=== PATIENT | female | born 1975 | race Caucasian/White ===

== ENCOUNTER 2016-07-02 12:32 | Inpatient (IN) | payer OTHER ==
[2016-07-02] MEDS ORDERED: COLACE PO PRN (13:45)
[2016-07-02] MEDS ORDERED: ALUM-MAG HYDROX-SIMETH 200-200-20MG/5ML PO PRN (13:45)
[2016-07-02] MEDS ORDERED: MILK OF MAGNESIA PO PRN (13:45)
--- NOTE | 2016-07-02 13:58 | History and Physical Report ---
History of Present Illness Date of examination: 07/02/16 Chief complaint: Headaches and elevated BP's History of present illness: Pt is a 41yo HF EDC 09/15/16 ; EGA 29 2/7 weeks sent from the office with complaints of headaches x 2 days and elevated BP's 175/101 in office. Repeat BP 179/103. She received care at [facility] since 13 weeks and course significant for previous C Section @ 38 weeks with her last delivery. Operative report is NOT available, but she desires a TOLAC. records are available and she will be admitted for suspected Preeclampsia. Past History Past Medical History: no pertinent history Past Surgical History: section Family/Genetic History: none Social history: no significant social history, single - Obstetrical History Expected Date of Delivery: 09/15/16 Actual Gestation: 29 Week(s) 2 Day(s) : 5 Medications and Allergies Allergies Allergy/AdvReac Type Severity Reaction Status Date / Time No Known Allergies Allergy Unverified 07/02/16 12:43 Home Medications Medication Instructions Recorded Confirmed Last Taken Type No Known Home Medications [No 07/02/16 07/02/16 Unknown History Reported Home Medications] Review of Systems All systems: negative - Vital Signs Vital signs: Vital Signs Pulse Pulse Ox 65 97 07/02/16 13:04 07/02/16 13:04 Temp Pulse Resp BP Pulse Ox 97.9 F 64 14 159/102 98 07/02/16 13:10 07/02/16 13:50 07/02/16 13:10 07/02/16 13:50 07/02/16 13:50 - Physical Exam Breasts: Positive: deferred Cardiovascular: Regular rate Lungs: Positive: Clear to auscultation Abdomen: Positive: normal appearance, soft Genitourinary (Female): Positive: normal external genitalia Uterus: Positive: enlarged Extremities: Positive: normal - Obstetrical FHR: category 1 Uterine Contraction Monitor Mode: External Cervical Dilatation: 0 Uterine Contraction Pattern: Irregular Uterine Contraction Intensity: Mild Results Result Diagrams: 07/02/16 13:45 07/02/16 13:45 All other labs normal. Ultrasound: report reviewed (Mora, Breech, ASHLEE 11.6, 1115gms, 3cm dilated. BPP 6/8) Assessment and Plan - Patient Problems (1) 29 weeks gestation of Onset Date: 07/02/16 Current Visit: Yes Status: Acute Plan to address problem: A: IUP @ 29 2/7 weeks Preeclampsia Previous C Section Breech P: Will admit to L&D for Observation and Evaluation Will begin Magnesium sulfate, Steroids, Antibiotics, antihypertensive meds , 24hr urine for protein C Section for delivery if remains breech Obtain APA and NICU consult (2) Previous delivery affecting Onset Date: 07/02/16 Current Visit: Yes Status: Acute (3) Pre-eclampsia Onset Date: 07/02/16 Current Visit: Yes Status: Acute Qualifiers: Trimester: third trimester Qualified Code(s): O14.93 - Unspecified pre- eclampsia, third trimester
[2016-07-02] MEDS: APRESOLINE IV PRN (14:10)
[2016-07-02] MEDS: LACTATED RINGERS 1,000 ML IV SCH (14:15)
[2016-07-02 14:17] LABS: Hematocrit 35.4 % (30.3-42.9); Hemoglobin 12.3 gm/dl (10.1-14.3); Mean Corpuscular HGB Conc 35 % (30-34); Mean Corpuscular Hemoglobin 30 pg (28-32); Mean Corpuscular Volume 88 fl (79-97); Red Blood Count 4.04 M/mm3 (3.65-5.03); White Blood Count 8.5 K/mm3 (4.5-11.0)
[2016-07-02 14:18] LABS: Basophils % (Auto) 0.5 % (0.0-1.8); Eosinophils % (Auto) 1.2 % (0.0-4.3); Platelet Count 229 K/mm3 (140-440); Red Cell Distribution Width 15.3 % (13.2-15.2)
[2016-07-02] MEDS: CELESTONE SOLUSPAN IM SCH (14:20)
[2016-07-02 14:29] LABS: Alanine Aminotransferase 7 units/L (7-56)
[2016-07-02] MEDS ORDERED: MAGNESIUM SULFATE 4GM/100ML 4 GM/100 ML BAG IV ONE (14:30)
[2016-07-02] MEDS: MAGNESIUM SULFATE 40GM/1000ML 40 GM/1,000 ML BAG IV SCH (14:33)
[2016-07-02 14:38] LABS: Alanine Aminotransferase 6 units/L (7-56); Albumin 3.5 g/dL (3.9-5); Albumin/Globulin Ratio 0.9 %; Alkaline Phosphatase 88 units/L (35-129); Anion Gap 19 mmol/L; Bilirubin,Total 0.4 mg/dL (0.1-1.2); Blood Urea Nitrogen 11 mg/dL (7-17); Calcium 9.2 mg/dL (8.4-10.2); Carbon Dioxide 20 mmol/L (22-30); Chloride 101.6 mmol/L (98-107); Glucose 89 mg/dL (65-100); Potassium 3.6 mmol/L (3.6-5.0); Sodium 137 mmol/L (137-145); Total Protein 7.2 g/dL (6.3-8.2)
[2016-07-02 17:05] LABS: Bilirubin,Urine NEG (Negative)
[2016-07-02 17:06] LABS: Bacteria,Urine 2+ /HPF (Negative); Blood,Urine NEG (Negative); Ketones,Urine 20 mg/dL (Negative); Leukocyte Esterase,Urine NEG (Negative); Mucus,Urine FEW /HPF; Nitrite,Urine NEG (Negative); Urobilinogen,Urine < 2.0 mg/dL (<2.0)
[2016-07-02] MEDS: TYLENOL PO PRN (19:31)
[2016-07-02] MEDS: ZOFRAN IV PRN (20:51)
[2016-07-02] MEDS ORDERED: STADOL IV ONE (20:59)
[2016-07-02] MEDS: POLYCILLIN/NS 1 GM/50 ML 1 GM/50 ML BAG IV SCH (21:11)
--- NOTE | 2016-07-02 23:21 | Consultation ---
History of Present Illness - Reason for Consult Consult date: 07/02/16 29 weeks with PIH Requesting physician: LISA BOB - History of Present Illness 40 year old mother at 29 weeks gestation with PIH. Admitted today for high blood pressure and headaches. Amharic speaking - consult done with nurse jack spooler tender I spoke at length with mother and explained the need for NICU admission, the risk of IVH, ROP, respiratory distress and possibly intubation, UVC, UAC & PICC line placements, parenteral nutrition and the likelihood of blood transfusions if was born at 29 weeks gestation. I explained that survival at 29 weeks is > 80%. Mother demonstrated understanding of the information provided and I answered all her questions Past History Social history: no significant social history, single Medications and Allergies Allergies Allergy/AdvReac Type Severity Reaction Status Date / Time No Known Allergies Allergy Unverified 07/02/16 12:43 Home Medications Medication Instructions Recorded Confirmed Last Taken Type No Known Home Medications [No 07/02/16 07/02/16 Unknown History Reported Home Medications] Active Meds: Active Medications Acetaminophen (Tylenol) 650 mg PO Q4H PRN PRN Reason: Pain MILD(1-3)/Fever >100.5/BAUMAN Last Admin: 07/02/16 19:31 Dose: 650 mg Al Hydrox/Mg Hydrox/Simethicone (Alum-Mag Hydrox-Simeth [id number]/5ml) 30 ml PO Q6H PRN PRN Reason: Indigestion Betamethasone Acet/Betameth SodPhos (Celestone Soluspan) 12 mg IM Q24H AMARJIT Stop: 07/03/16 15:01 Last Admin: 07/02/16 14:20 Dose: 12 mg Docusate Sodium (Colace) 100 mg PO Q12H PRN PRN Reason: Constipation Hydralazine HCl (Apresoline) 10 mg IV Q30MIN PRN PRN Reason: Blood Pressure Last Admin: 07/02/16 14:10 Dose: 10 mg Ampicillin Sodium (Polycillin/Ns 1 Gm/50 Ml) 1 gm in 50 mls @ 100 mls/hr IV Q4H AMARJIT PRN Reason: Protocol Last Admin: 07/02/16 21:11 Dose: 100 mls/hr Lactated Ringer's (Lactated Ringers) 1,000 mls @ 125 mls/hr IV DIRECT AMARJIT Last Admin: 07/02/16 14:15 Dose: 125 mls/hr Magnesium Sulfate (Magnesium Sulfate 40gm/1000ml) 40 gm in 1,000 mls @ 50 mls/ hr IV DIRECT AMARJIT PRN Reason: 2 GM/HR Last Admin: 07/02/16 14:33 Dose: 2 gm/hr, 50 mls/hr Magnesium Hydroxide (Milk Of Magnesia) 30 ml PO QHS PRN PRN Reason: Laxative Effect Multivitamins/Iron/Calcium ( Vitamin) 1 each PO QDAY AMARJIT Ondansetron HCl (Zofran) 4 mg IV Q6H PRN PRN Reason: Nausea And Vomiting Last Admin: 07/02/16 20:51 Dose: 4 mg Exam - Constitutional Vitals: Temp Pulse Resp BP Pulse Ox 98.1 F 74 20 167/101 95 07/02/16 19:10 07/02/16 23:05 07/02/16 20:15 07/02/16 22:57 07/02/16 23:05 Results - Labs CBC & Chem 7: 07/02/16 13:45 07/02/16 13:45 Labs: Abnormal lab results 07/02/16 07/02/16 07/02/16 Range/Units 13:45 13:45 20:46 MCHC 35 H (30-34) % RDW 15.3 H (13.2-15.2) % Lymph % (Auto) 12.5 L (13.4-35.0) % Lymph # 1.1 L (1.2-5.4) K/mm3 Seg Neutrophils % 80.9 H (40.0-70.0) % Carbon Dioxide 20 L (22-30) mmol/L Creatinine 0.4 L (0.7-1.2) mg/dL Magnesium 5.4 H (1.7-2.3) mg/dL ALT 6 L (7-56) units/L Albumin 3.5 L (3.9-5) g/dL Assessment and Plan Agree with Betamethasone and MgSO4 Will attend delivery Please call NICU with questions
[2016-07-03] MEDS: APRESOLINE IV PRN (00:22)
[2016-07-03] MEDS: POLYCILLIN/NS 1 GM/50 ML 1 GM/50 ML BAG IV SCH ×4 (02:49→14:30)
[2016-07-03] MEDS: TYLENOL PO PRN (02:57)
[2016-07-03] MEDS: LACTATED RINGERS 1,000 ML IV SCH (05:10)
--- NOTE | 2016-07-03 07:16 | Ultrasound Report ---
BIOPHYSICAL PROFILE: INDICATION: well being. HTN. growth, position and ASHLEE. COMPARISON: None similar. TECHNIQUE: Transabdominal ultrasound with Doppler interrogation. 0 - breathing movements 2 - movements 2 - posture and tone 2 - Qualitative amniotic fluid volume 6 - TOTAL SCORE OF POSSIBLE 8 Heart Rate (bpm) 137
[2016-07-03] MEDS: ZOFRAN IV PRN (08:32)
--- NOTE | 2016-07-03 08:46 | Consultation ---
History of Present Illness Consult date: 07/03/16 History of present illness: Headaches and elevated BP's History of present illness: Pt is a 41yo HF EDC 09/15/16 ; EGA 29 3/7 weeks sent from the OB's office with complaints of headaches x 2 days and elevated BP's 175/101 in office. Denies H/O CHTN States BAUMAN's 5 to 9/10 Denies Scotoma or RUQ Pain Repeat BP 179/103. BP's on Admission 194/100 and 107/101 and 153/102 Received Hydralazine Last PM This morning BP at 165/93 She received care at [facility] [employer] since 13 weeks and course significant for previous C Section @ 38 weeks with her last delivery. Operative report is NOT available, but she desires a TOLAC. records are available and she will be admitted for suspected Preeclampsia. BPP 6/8 - (Minus 2 - Breathing) Breech US done at [facility] - 07/02/16 - EFW at 1115 grams - 4% ASHLEE at 11.6 cm Abd gravid No RUQ Pain DTR's 2 Plus , No clonus on Mg Past History Past Medical History: no pertinent history Past Surgical History: section Family/Genetic History: none Social history: no significant social history, single - Obstetrical History Vag Del x 3 and C/S X 1 with last preg due to ?? Breech Expected Date of Delivery: 09/15/16 Actual Gestation: 29 Week(s) 2 Day(s) : 5 Past History Past Medical History: no pertinent history Past Surgical History: section Family/Genetic History: none - Obstetrical History : 5 Medications and Allergies Allergies Allergy/AdvReac Type Severity Reaction Status Date / Time No Known Allergies Allergy Unverified 07/02/16 12:43 Home Medications Medication Instructions Recorded Confirmed Last Taken Type No Known Home Medications [No 07/02/16 07/02/16 Unknown History Reported Home Medications] Active Meds: Active Medications Acetaminophen (Tylenol) 650 mg PO Q4H PRN PRN Reason: Pain MILD(1-3)/Fever >100.5/BAUMAN Last Admin: 07/03/16 02:57 Dose: 650 mg Al Hydrox/Mg Hydrox/Simethicone (Alum-Mag Hydrox-Simeth [phone]/5ml) 30 ml PO Q6H PRN PRN Reason: Indigestion Betamethasone Acet/Betameth SodPhos (Celestone Soluspan) 12 mg IM Q24H AMARJIT Stop: 07/03/16 15:01 Last Admin: 07/02/16 14:20 Dose: 12 mg Docusate Sodium (Colace) 100 mg PO Q12H PRN PRN Reason: Constipation Hydralazine HCl (Apresoline) 10 mg IV Q30MIN PRN PRN Reason: Blood Pressure Last Admin: 07/03/16 00:22 Dose: 10 mg Ampicillin Sodium (Polycillin/Ns 1 Gm/50 Ml) 1 gm in 50 mls @ 100 mls/hr IV Q4H AMARJIT PRN Reason: Protocol Last Admin: 07/03/16 06:36 Dose: 100 mls/hr Lactated Ringer's (Lactated Ringers) 1,000 mls @ 125 mls/hr IV DIRECT AMARJIT Last Admin: 07/03/16 05:10 Dose: 75 mls/hr Magnesium Sulfate (Magnesium Sulfate 40gm/1000ml) 40 gm in 1,000 mls @ 50 mls/ hr IV DIRECT AMARJIT PRN Reason: 2 GM/HR Last Admin: 07/02/16 14:33 Dose: 2 gm/hr, 50 mls/hr Labetalol HCl (Normodyne) 200 mg PO BID AMARJIT Magnesium Hydroxide (Milk Of Magnesia) 30 ml PO QHS PRN PRN Reason: Laxative Effect Multivitamins/Iron/Calcium ( Vitamin) 1 each PO QDAY AMARJIT Ondansetron HCl (Zofran) 4 mg IV Q6H PRN PRN Reason: Nausea And Vomiting Last Admin: 07/03/16 08:32 Dose: 4 mg - Vital Signs Vital signs: Vital Signs Pulse Pulse Ox 65 97 07/02/16 13:04 07/02/16 13:04 Temp Pulse Resp BP Pulse Ox 98.1 F 85 20 151/86 94 07/03/16 06:22 07/03/16 08:28 07/03/16 06:22 07/03/16 08:28 07/03/16 03:38 Results Result Diagrams: 07/02/16 13:45 07/02/16 13:45 Abnormal lab results 07/02/16 07/02/16 07/02/16 Range/Units 13:45 13:45 20:46 MCHC 35 H (30-34) % RDW 15.3 H (13.2-15.2) % Lymph % (Auto) 12.5 L (13.4-35.0) % Lymph # 1.1 L (1.2-5.4) K/mm3 Seg Neutrophils % 80.9 H (40.0-70.0) % Carbon Dioxide 20 L (22-30) mmol/L Creatinine 0.4 L (0.7-1.2) mg/dL Magnesium 5.4 H (1.7-2.3) mg/dL ALT 6 L (7-56) units/L Albumin 3.5 L (3.9-5) g/dL 07/03/16 Range/Units 06:14 MCHC (30-34) % RDW (13.2-15.2) % Lymph % (Auto) (13.4-35.0) % Lymph # (1.2-5.4) K/mm3 Seg Neutrophils % (40.0-70.0) % Carbon Dioxide (22-30) mmol/L Creatinine (0.7-1.2) mg/dL Magnesium 6.7 H (1.7-2.3) mg/dL ALT (7-56) units/L Albumin (3.9-5) g/dL All other labs normal. Assessment and Plan Impression: 1. Mora IUP at 29 3/7 weeks 2. Preeclampsia with Severe Features 3. IUGR - EFW at 4% 4. Breech 5. Prior C/S 6. AMA 7. Symptomatic with BAUMAN's Recommendations: 1. Steroids for FLM 2. Mg SO4 Per Protocol 3. 24 Hour Urine in progress 4. Hydralazine IV for BP's Sys > 160 or Mccrary > 110 5. NICU Consult - Done 6. Labetalol 200 mg PO BID 7. Recommend delivery 24 hours after steroid complete due to Preeclamspsia with Severe Features - (Repeat C/S due to prior C/S and Now Breech) 8. Explained in detail recommendation for delivery (Utilizing Power Bender Operator) - IF BAUMAN's increasing or BP's continue to be in severe range may need to be delivered earlier. Understands risks of prematurity (morbidity and mortality) and need for extended stay of infant in NICU.
--- NOTE | 2016-07-03 09:53 | Ultrasound Report ---
COMPLETE OB ULTRASOUND: Gestation: melchor Position: breech ASHLEE = 11.6 cm Placenta: posterior fundal Placental Grade: 2 Heart Rate: 143 BPM Cervical length: 3 cm (Normal > 3 cm) NEUROANATOMY VISUALIZED: Choroid Plexus Cisterna Magnum Cerebellum Lateral Ventricle ANATOMY VISUALIZED: Stomach Kidneys Bladder Diaphragm 4 Chamber Heart Heart 3 Vessel Cord Abd. Cord Insert SPINE VISUALIZED: Longitudinal Transverse AP Limited spine due to position The following are not demonstrated due to maternal body habitus or lie: BPD: 6.8 cm = 27 w 2 d HC: 25.6 cm = 27 w 6 d AC: 23 cm = 27 w 3 d FL: 5.3 cm = 28 w 2 d HC/AC Ratio: 1.11 Cephalic Index: 76.7 Estimated Weight: 1115 grams Clinical age = 29 w 2 d EDC: 09/15/16 US Gest. Age = 27 w 5 d EDC: 09/26/16
[2016-07-03] MEDS ORDERED: PRENATAL VITAMIN PO SCH (10:00)
[2016-07-03] MEDS ORDERED: NORMODYNE PO SCH ×2 (10:00→22:00)
--- NOTE | 2016-07-03 11:01 | Admit Criteria Form ---
Admission Criteria Documentation: HYPERTENSIVE DISORDERS OF Clinical Indications for Admission to Inpatient Care (Place 'X' for any and all applicable criteria): Admission is indicated for ANY ONE of the following (1)(2)(3)(4)(5): [ ]I. Eclampsia[A][B] [X ]II. Preeclampsia with severe features (ie, severe preeclampsia) indicated by ANY ONE of the following[B][C]: [X ]a) SBP greater than or equal to 160 mm Hg or DBP greater than or equal to 110 mm Hg on 2 occasions at least 4 hours apart while the patient is at bed rest (unless antihypertensive therapy is initiated before this time) [ ]b) Platelet count less than 100,000/mm3 (100 x109/L) [ ]c) Impaired liver function as indicated by ANY ONE of the following: [ ]i. Elevation of liver enzymes (eg, SGOT, SGPT) to twice normal concentration [ ]ii. Severe persistent right upper quadrant or epigastric pain unresponsive to medication and not accounted for by alternative diagnosis [ ]d) Progressive renal insufficiency indicated by ANY ONE of the following: [ ]i. Serum creatinine concentration greater than 1.1 mg/dL (97 micromoles/L) [ ]ii. Doubling (from baseline) of serum creatinine concentration in the absence of other renal disease [ ]e) Pulmonary edema [ ]f) Cerebral or visual symptoms (eg, headache, Altered mental status , changes in vision) [ ]III. Delivery planned due to nonsevere preeclampsia as indicated by ALL of the following: [ ]a) Nonsevere preeclampsia present as indicated by ALL of the following: [ ]i. Woman at 20 or more weeks' gestation [ ]ii. New-onset SBP greater than or equal to 140 mm Hg but less than 160 mm Hg or DBP greater than or equal to 90 mm Hg but less than 110 mm Hg on 2 occasions at least 4 hours apart [ ]iii. Proteinuria present as indicated by ANY ONE of the following: [ ]A. Urinary protein excretion greater than or equal to 300 mg per 24-hour collection (or this amount extrapolated from a shorter timed collection) [ ]B. Protein/creatinine ratio greater than or equal to 0.3 (measured in mg/dL) [ ]b) Delivery indicated due to ANY ONE of the following: [ ]i. Gestational age of 37 0/7 weeks or more [ ]ii. Gestational age of 34 0/7 weeks to 36 6/7 weeks and ANY ONE of the following: [ ]A. Progressive labor or rupture of membranes [ ]B. Abnormal biophysical profile [ ]C. Suspected abruptio placentae [ ]D. Ultrasound estimate of weight less than 5th percentile [ ]E. Other indication for delivery [ ]IV. Delivery planned due to gestational hypertension[D] because of ANY ONE of the following: [ ]a) Delivery indicated because gestational age of 37 0/7 weeks or more has been reached [ ]b) Gestational age of 34 0/7 weeks to 36 6/7 weeks for which delivery is indicated because of ANY ONE of the following: [ ]i. Progressive labor or rupture of membranes [ ]ii. Abnormal biophysical profile [ ]iii. Suspected abruptio placentae [ ]iv. Ultrasound estimate of weight less than 5th percentile [ ]v. Other indication for delivery [ ]V. Hypertension of any category[E] during with acute end organ damage as indicated by ANY ONE of the following: [ ]a) Hypertensive encephalopathy (eg, Altered mental status that is severe or persistent )(11) [ ]b) Cerebral infarction [ ]c) Intracranial hemorrhage [ ]d) Myocardial ischemia or infarction [ ]e) Pulmonary edema [ ]f) Aortic dissection [ ]g) Seizure [ ]h) Papilledema [ ]i) Microangiopathic hemolytic anemia [ ]j) Visual loss [ ]k) Acute renal failure [ ]) Hypertension during with evidence of compromise as indicated by ANY ONE of the following: [ ]a) Abnormal heart tones [ ]b) Abnormal stress test [ ]c) Abnormal biophysical profile [ ]VII) patient requires inpatient control of blood pressure indicated by (see Hypertensive Disorders of : Observation Care [facility] guideline as appropriate) ALL of the following: [ ]a) SBP is greater than or equal to 160 mm Hg or DBP is greater than or equal to 105 mm Hg [ ]b) Blood pressure cannot be reduced below these levels with outpatient or observation care treatment (eg, oral medications not effective) Extended stay beyond goal length of stay may be needed for : [ ]a) Eclampsia [ ]b) Ongoing compromise [ ]c) Complications of hypertensive disorders of [ ]d) Active comorbidities (eg, heart failure, poorly controlled diabetes, renal insufficiency) [ ]e) Persistent hypertension [ ]f) Delivery planned The original [facility] content created by [employer] has been revised. The portions of the content which have been revised are identified through the use of italic text or in bold, and [employer] has neither reviewed nor approved the modified material. All other unmodified content is copyright [facility]. Please see references footnoted in the original [facility] [employer] edition 2016. Admission Criteria Met: Yes
[2016-07-03] MEDS: MAGNESIUM SULFATE 40GM/1000ML 40 GM/1,000 ML BAG IV SCH (11:12)
--- NOTE | 2016-07-03 12:40 | Progress Note ---
Assessment and Plan A: 41yo HF at EGA 29 3/7 weeks with Pre-E with severe features -BPP 6/8 (07/02/16) Issues: - IUGR - EFW at 4% - Breech - Prior C/S - AMA - Symptomatic with BAUMAN's - s/p BMZ # 1 (07/02/16 @ ~ 14:00) P: -MFM notes reviewed, thx -Mag level elevated this morning at 6.7, mag reduced to 1 g per hour -Rpt BPP -Continue present care -Delivery Wednesday after ~ 2 PM per MFM notes Subjective - Subjective Date of service: 07/03/16 Principal diagnosis: IUP @ 29+ wks, Pre-E w/ severe features Interval history: Since seen and examined, stable. Limited vietnamese but seems to understand basal concept. No new issues at this time, MFM consult note reviewed Patient reports: new complaints, movement normal, no loss of fluid, no vaginal bleeding, no contractions Objective - Vital Signs Vital Signs: Vital Signs - 12hr 07/03/16 07/03/16 07/03/16 00:40 00:45 00:50 Temperature Pulse Rate 82 81 83 Pulse Rate [ Right From Monitor] Respiratory Rate Blood Pressure Blood Pressure [Right Arm] O2 Sat by Pulse 96 95 96 Oximetry 07/03/16 07/03/16 07/03/16 00:55 00:57 01:00 Temperature Pulse Rate 91 H 81 78 Pulse Rate [ Right From Monitor] Respiratory Rate Blood Pressure 140/85 Blood Pressure [Right Arm] O2 Sat by Pulse 97 96 Oximetry 07/03/16 07/03/16 07/03/16 01:05 01:10 01:15 Temperature Pulse Rate 81 81 80 Pulse Rate [ Right From Monitor] Respiratory Rate Blood Pressure Blood Pressure [Right Arm] O2 Sat by Pulse 96 96 95 Oximetry 07/03/16 07/03/16 07/03/16 01:20 01:25 01:27 Temperature Pulse Rate 81 83 80 Pulse Rate [ Right From Monitor] Respiratory Rate Blood Pressure 141/79 Blood Pressure [Right Arm] O2 Sat by Pulse 95 95 Oximetry 07/03/16 07/03/16 07/03/16 01:30 01:35 01:40 Temperature Pulse Rate 84 81 79 Pulse Rate [ Right From Monitor] Respiratory Rate Blood Pressure Blood Pressure [Right Arm] O2 Sat by Pulse 95 95 95 Oximetry 07/03/16 07/03/16 07/03/16 01:45 01:50 01:55 Temperature Pulse Rate 79 80 78 Pulse Rate [ Right From Monitor] Respiratory Rate Blood Pressure Blood Pressure [Right Arm] O2 Sat by Pulse 96 96 96 Oximetry 07/03/16 07/03/16 07/03/16 01:58 02:00 02:05 Temperature Pulse Rate 82 85 88 Pulse Rate [ Right From Monitor] Respiratory Rate Blood Pressure 159/99 Blood Pressure [Right Arm] O2 Sat by Pulse 96 96 Oximetry 07/03/16 07/03/16 07/03/16 02:10 02:15 02:20 Temperature Pulse Rate 89 90 89 Pulse Rate [ Right From Monitor] Respiratory Rate Blood Pressure Blood Pressure [Right Arm] O2 Sat by Pulse 95 95 95 Oximetry 07/03/16 07/03/16 07/03/16 02:25 02:27 02:30 Temperature Pulse Rate 89 89 90 Pulse Rate [ Right From Monitor] Respiratory Rate Blood Pressure 164/94 Blood Pressure [Right Arm] O2 Sat by Pulse 95 95 Oximetry 07/03/16 07/03/16 07/03/16 02:35 02:40 02:45 Temperature Pulse Rate 106 H 90 89 Pulse Rate [ Right From Monitor] Respiratory Rate Blood Pressure Blood Pressure [Right Arm] O2 Sat by Pulse 97 95 95 Oximetry 07/03/16 07/03/16 07/03/16 02:50 02:51 02:55 Temperature 97.6 F Pulse Rate 84 91 H Pulse Rate [ Right From Monitor] Respiratory 20 Rate Blood Pressure Blood Pressure [Right Arm] O2 Sat by Pulse 96 96 Oximetry 07/03/16 07/03/16 07/03/16 02:57 03:00 03:05 Temperature Pulse Rate 93 H 84 85 Pulse Rate [ Right From Monitor] Respiratory 20 Rate Blood Pressure 132/88 Blood Pressure [Right Arm] O2 Sat by Pulse 96 96 Oximetry 07/03/16 07/03/16 07/03/16 03:10 03:15 03:20 Temperature Pulse Rate 86 89 89 Pulse Rate [ Right From Monitor] Respiratory Rate Blood Pressure Blood Pressure [Right Arm] O2 Sat by Pulse 95 95 95 Oximetry 07/03/16 07/03/16 07/03/16 03:25 03:28 03:30 Temperature Pulse Rate 92 H 81 80 Pulse Rate [ Right From Monitor] Respiratory Rate Blood Pressure 142/83 Blood Pressure [Right Arm] O2 Sat by Pulse 96 96 Oximetry 07/03/16 07/03/16 07/03/16 03:32 03:35 03:38 Temperature Pulse Rate 85 92 H 78 Pulse Rate [ Right From Monitor] Respiratory Rate Blood Pressure Blood Pressure [Right Arm] O2 Sat by Pulse 94 95 94 Oximetry 07/03/16 07/03/16 07/03/16 03:58 04:27 04:57 Temperature Pulse Rate 74 96 H 80 Pulse Rate [ Right From Monitor] Respiratory Rate Blood Pressure 145/83 160/97 153/91 Blood Pressure [Right Arm] O2 Sat by Pulse Oximetry 07/03/16 07/03/16 07/03/16 05:28 05:57 06:22 Temperature 98.1 F Pulse Rate 82 81 Pulse Rate [ Right From Monitor] Respiratory 20 Rate Blood Pressure 140/90 148/89 Blood Pressure [Right Arm] O2 Sat by Pulse Oximetry 07/03/16 07/03/16 07/03/16 06:27 06:57 07:27 Temperature Pulse Rate 77 80 82 Pulse Rate [ Right From Monitor] Respiratory Rate Blood Pressure 153/86 147/84 153/89 Blood Pressure [Right Arm] O2 Sat by Pulse Oximetry 07/03/16 07/03/16 07/03/16 07:57 08:28 08:57 Temperature Pulse Rate 88 85 86 Pulse Rate [ Right From Monitor] Respiratory Rate Blood Pressure 165/93 151/86 151/83 Blood Pressure [Right Arm] O2 Sat by Pulse Oximetry 07/03/16 07/03/16 07/03/16 09:27 09:57 10:25 Temperature Pulse Rate 81 90 90 Pulse Rate [ Right From Monitor] Respiratory Rate Blood Pressure 153/87 150/83 150/83 Blood Pressure [Right Arm] O2 Sat by Pulse Oximetry 07/03/16 07/03/16 07/03/16 10:27 10:57 11:27 Temperature Pulse Rate 87 90 84 Pulse Rate [ Right From Monitor] Respiratory Rate Blood Pressure 150/90 155/82 158/89 Blood Pressure [Right Arm] O2 Sat by Pulse Oximetry 07/03/16 07/03/16 07/03/16 11:57 12:18 12:27 Temperature 98.3 F Pulse Rate 87 83 Pulse Rate [ 87 Right From Monitor] Respiratory 20 Rate Blood Pressure 169/96 150/89 Blood Pressure 169/96 [Right Arm] O2 Sat by Pulse Oximetry - Exam Abdomen: Present: soft. Absent: tenderness, guarding Uterus: Absent: tenderness - Labs Labs: Abnormal Labs 07/02/16 07/02/16 07/02/16 13:45 13:45 20:46 MCHC 35 H RDW 15.3 H Lymph % (Auto) 12.5 L Lymph # 1.1 L Seg Neutrophils % 80.9 H Carbon Dioxide 20 L Creatinine 0.4 L Magnesium 5.4 H ALT 6 L Albumin 3.5 L 07/03/16 06:14 MCHC RDW Lymph % (Auto) Lymph # Seg Neutrophils % Carbon Dioxide Creatinine Magnesium 6.7 H ALT Albumin Laboratory Results - last 24 hr 07/02/16 07/02/16 07/02/16 13:45 13:45 16:27 WBC 8.5 RBC 4.04 Hgb 12.3 Hct 35.4 MCV 88 MCH 30 MCHC 35 H RDW 15.3 H Plt Count 229 Lymph % (Auto) 12.5 L [place] % (Auto) 4.9 Eos % (Auto) 1.2 Baso % (Auto) 0.5 Lymph # 1.1 L [place] # 0.4 Eos # 0.1 Baso # 0.0 Seg Neutrophils % 80.9 H Seg Neutrophils # 6.9 Sodium 137 Potassium 3.6 Chloride 101.6 Carbon Dioxide 20 L Anion Gap 19 BUN 11 Creatinine 0.4 L Estimated GFR > 60 BUN/Creatinine Ratio 27.50 Glucose 89 Calcium 9.2 Magnesium Total Bilirubin 0.4 AST 14 ALT 6 L Alkaline Phosphatase 88 Total Protein 7.2 Albumin 3.5 L Albumin/Globulin Ratio 0.9 Urine Color Yellow Urine Turbidity Slightly-cloudy Urine pH 7.0 Ur Specific [place] 1.012 Urine Protein 100 mg/dl Urine Glucose (UA) Neg Urine Ketones 20 Urine Blood Neg Urine Nitrite Neg Urine Bilirubin Neg Urine Urobilinogen < 2.0 Ur Leukocyte Esterase Neg Urine WBC (Auto) 3.0 Urine RBC (Auto) 2.0 U Epithel Cells (Auto) < 1.0 Urine Bacteria (Auto) 2+ Urine Mucus Few 07/02/16 07/02/16 07/03/16 20:46 Unknown 06:14 WBC RBC Hgb Hct MCV MCH MCHC RDW Plt Count Lymph % (Auto) [place] % (Auto) Eos % (Auto) Baso % (Auto) Lymph # [place] # Eos # Baso # Seg Neutrophils % Seg Neutrophils # Sodium Potassium Chloride Carbon Dioxide Anion Gap BUN Creatinine Estimated GFR BUN/Creatinine Ratio Glucose Calcium Magnesium 5.4 H 6.7 H Total Bilirubin AST 14 ALT 7 Alkaline Phosphatase Total Protein Albumin Albumin/Globulin Ratio Urine Color Urine Turbidity Urine pH Ur Specific [place] Urine Protein Urine Glucose (UA) Urine Ketones Urine Blood Urine Nitrite Urine Bilirubin Urine Urobilinogen Ur Leukocyte Esterase Urine WBC (Auto) Urine RBC (Auto) U Epithel Cells (Auto) Urine Bacteria (Auto) Urine Mucus
[2016-07-03] MEDS: CELESTONE SOLUSPAN IM SCH (14:15)
--- NOTE | 2016-07-03 16:24 | Ultrasound Report ---
BIOPHYSICAL PROFILE: 2 - breathing movements 2 - movements 2 - posture and tone 2 - Qualitative amniotic fluid volume 8 - TOTAL SCORE OF POSSIBLE 8 Heart Rate (bpm) 135 Estimated gestational age 29 weeks 3 days.
--- NOTE | 2016-07-03 21:04 | Event Note ---
Date: 07/03/16 Patient is scheduled for delivery tomorrow per [facility] consultation. Just spoke with NICU physician and staff. We are still under diversion and they would like patient transferred to another facility for tomorrow. I spoke with Dr. Kina Chen at [facility], she has graciously accepted the patient. Communicated above the patient. Note that Dr. Chen wants labetalol increased to 300 mg twice a day
[2016-07-03 22:40] VITALS: BP 155/80
== END 2016-07-03 23:00 | disposition home or self-care (01) | DRG 781 ==
LOC: TRG 12:32 → LD 14:30
PROVIDERS: ADMIT Obstetrics & Gynecology; ATTEND Obstetrics & Gynecology
DX: O32.1XX0 Maternal care for breech presentation, not applicable or unspecified (principal); O14.93 Unspecified pre-eclampsia, third trimester; O34.219 Maternal care for unspecified type scar from previous cesarean delivery; O36.5930 Maternal care for other known or suspected poor fetal growth, third trimester, not applicable or unspecified; Z3A.29 29 weeks gestation of pregnancy; O09.523 Supervision of elderly multigravida, third trimester
CPT/HCPCS: 36415; 76805; 76819; 80053; 81001; 83735; 84156; 84450; 84460; 85025; J0290; J0360; J0595; J0702; J2405; J3475; J7120